=== PATIENT | female | born 1930 | race Caucasian/White ===

== ENCOUNTER 2021-06-15 22:34 | Inpatient (IN) | payer MEDICARE, OTHER ==
[~2021-06-15] VITALS: Ht 165.1 cm; Wt 56.7 kg
--- NOTE | 2021-06-15 23:30 | NUR ---
PATIENT DOES NOT RECALL HOME MEDICATION AT THIS TIME.
--- NOTE | 2021-06-15 23:40 | NUR ---
MEDICALLY CLEARED BY DR KISER.
[2021-06-15] MEDS ORDERED: NORVASC PO (23:50)
[2021-06-15] MEDS ORDERED: AMLODIPINE 5 MG TABLET ONE (23:54)
[2021-06-16] MEDS ORDERED: AMLODIPINE 5 MG TABLET PO ONE
--- NOTE | 2021-06-16 00:19 | NUR ---
Gave report to fermin roberts
[2021-06-16] MEDS ORDERED: LORAZEPAM 0.5 MG TABLET PO PRN (00:45)
[2021-06-16] MEDS ORDERED: MAG HYDROX/AL HYDROX/SIMETH 30 ML LIQUID UDC PO PRN (00:45)
[2021-06-16] MEDS ORDERED: MAGNESIUM HYDROXIDE 30 ML LIQUID UDC PO PRN (00:45)
[2021-06-16] MEDS ORDERED: BLOOD SUGAR DIAGNOSTIC 1 EACH STRIP VI ONE (00:45)
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
[2021-06-16 03:36] VITALS: BP 157/59
--- NOTE | 2021-06-16 06:00 | NUR ---
Slept 4.75 hours, total. Continues to sleep. Refused shower.
[2021-06-16 07:30] VITALS: BP 136/49
--- NOTE | 2021-06-16 09:04 | NUR ---
Firearms Report: Bowling Alley Mechanic completed and submitted a [employer] firearms report for 5150 DTS/DTO certifications. A copy of report has been placed in patient chart.
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
--- NOTE | 2021-06-16 10:09 | NUR ---
ELO Initial Discharge Plan: Pt was residing at her son's house Michael Esquivel ([phone]) located at [address] [place] [address] [place] [address]. Per patient will laney a SNF placement upon discharge. ELO will continue to work with patient, family, and MD to ensure a safe and proper discharge plan.
[2021-06-16] MEDS ORDERED: APIX2.5T PO (10:20)
[2021-06-16] MEDS ORDERED: APIXABAN 2.5 MG TABLET PO ONE (12:00)
[2021-06-16] MEDS ORDERED: BENA1TAB18 PO (13:46)
[2021-06-16] MEDS ORDERED: ATOR20TA PO (13:46)
[2021-06-16] MEDS ORDERED: AMLO2.5T2 PO (15:39)
[2021-06-16 16:00] VITALS: BP 128/46
[2021-06-16] MEDS: DIVALPROEX SPRINKLE 125 MG CAP.SPRINK PO SCH (17:28)
--- NOTE | 2021-06-16 20:00 | NUR ---
DPOA papers, naming patient's son Michael Esquivel, was received, and placed in chart.
[2021-06-16 20:01] VITALS: BP 125/57
[2021-06-16] MEDS: OLANZAPINE 2.5 MG TABLET PO SCH (20:35)
--- NOTE | 2021-06-16 21:00 | NUR ---
This press writer spoke with patients son, and DPOA, . He stated that patient was taking the OTC supplement, Prevagin, for her memory. He requested that MD order this medication for patient. She brought her own bottle, which will be sent to pharmacy. Med was entered into med reconciliation list. Will pass on to morning shift nurse aureliano request, so MD can be informed of his request.
[2021-06-16] MEDS: ACETAMINOPHEN 325 MG TABLET PO PRN (21:20)
[2021-06-16] MEDS ORDERED: prevagen SL (22:10)
--- NOTE | 2021-06-17 01:59 | NUR ---
Received to care, isolative, but pleasant, hard of hearing, but able to communicate well, with notes from staff. Compliant with medications, and staff direction. Ambulated via front wheel walker independently, but monitored closely, by staff. Bed alarm armed at bedtime, for her safety. No signs of aggression, but denies need foe psychiatric care. She went to sleep, around 2129. As of now, she continues to sleep. No distress noted. Will continue to monitor closely.
--- NOTE | 2021-06-17 06:00 | NUR ---
Slept well. Continues to sleep, intermittently. No distress, noted.
[2021-06-17 07:30] VITALS: BP 108/51
[2021-06-17] MEDS: DIVALPROEX SPRINKLE 125 MG CAP.SPRINK PO SCH ×2 (08:45→16:40)
[2021-06-17] MEDS: ATORVASTATIN 20 MG TABLET PO SCH (08:45)
[2021-06-17] MEDS: BENAZEPRIL HCL 20 MG TABLET PO SCH (08:46)
[2021-06-17] MEDS: APIXABAN 2.5 MG TABLET PO SCH ×2 (08:56→17:19)
[2021-06-17] MEDS: HYDROCHLOROTHIAZIDE 12.5 MG CAPSULE PO SCH (08:57)
[2021-06-17] MEDS: AMLODIPINE 2.5 MG TABLET PO SCH ×2 (08:58→17:00)
[2021-06-17 16:00] VITALS: BP 105/40
[2021-06-17] MEDS: PREVAGEN EXTRA STRENGTH PO SCH (17:16)
[2021-06-17] MEDS: ACETAMINOPHEN 325 MG TABLET PO PRN (17:40)
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
[2021-06-17 20:00] VITALS: BP 130/51
[2021-06-17] MEDS: OLANZAPINE 2.5 MG TABLET PO SCH (20:24)
--- NOTE | 2021-06-17 21:50 | NUR ---
GPS: Pt.is anxious,paranoid and fearful of her roommate. Demanding for her roommate to be moved to a different room. Argumentative with staff. Re-assured prn. Refuses Ativan 0.5mg PO for anxiety. Safety checks Q15 minutes done to ensure pt's safety. Roommate moved to a different room as agreed by both patients. Will continue to monitor.
[2021-06-18] MEDS: TEMAZEPAM 7.5 MG CAPSULE PO PRN ×2 (00:08→22:00)
[2021-06-18 08:00] VITALS: BP 126/46
[2021-06-18] MEDS: ATORVASTATIN 20 MG TABLET PO SCH (08:32)
[2021-06-18] MEDS: DIVALPROEX SPRINKLE 125 MG CAP.SPRINK PO SCH ×2 (08:32→16:23)
[2021-06-18] MEDS: PREVAGEN EXTRA STRENGTH PO SCH (08:34)
[2021-06-18] MEDS: HYDROCHLOROTHIAZIDE 12.5 MG CAPSULE PO SCH (08:34)
[2021-06-18] MEDS: APIXABAN 2.5 MG TABLET PO SCH ×2 (08:39→16:27)
[2021-06-18] MEDS: BENAZEPRIL HCL 20 MG TABLET PO SCH (08:40)
[2021-06-18] MEDS: AMLODIPINE 2.5 MG TABLET PO SCH ×2 (08:40→16:26)
[2021-06-18] MEDS ORDERED: PREVAGEN EXTRA STRENGTH PO SCH (09:00)
--- NOTE | 2021-06-18 09:19 | NUR ---
GPS: PT RECEIVED TODAY, ANXIOUS AND SUSPICIOUS WITH MEDICATIONS BEING GIVEN TO HER. PT STATED" YOU ARE GIVING ME MEDICATIONS TO KILL ME" RE-EDUCATED PT WITH THE MEDICATIONS SHE'S TAKING SPECIALLY THE PREVAGEN SHE'S ASKING THAT PT DENIES AND TELLS BRENNEN SON THAT SHE'S NOT GETTING. PT TALKED TO HER SON TODAY. PT NEEDY, COOPERATIVE WITH CARE.
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
[2021-06-18 16:00] VITALS: BP 132/42
[2021-06-18 20:26] VITALS: BP 128/50
[2021-06-18] MEDS: OLANZAPINE 2.5 MG TABLET PO SCH (20:26)
--- NOTE | 2021-06-18 20:42 | NUR ---
GPS: Discussed vaccination status with pt. and his son at this time. Pt.refusing PNA vaccine. Flu vaccine she just got few weeks ago. Communicated.
[2021-06-19 07:56] VITALS: BP 157/54
[2021-06-19] MEDS: HYDROCHLOROTHIAZIDE 12.5 MG CAPSULE PO SCH (09:08)
[2021-06-19] MEDS: PREVAGEN EXTRA STRENGTH PO SCH (09:08)
[2021-06-19] MEDS: DIVALPROEX SPRINKLE 125 MG CAP.SPRINK PO SCH ×2 (09:08→20:24)
[2021-06-19] MEDS: ATORVASTATIN 20 MG TABLET PO SCH (09:09)
[2021-06-19] MEDS: BENAZEPRIL HCL 20 MG TABLET PO SCH (09:09)
[2021-06-19] MEDS: AMLODIPINE 2.5 MG TABLET PO SCH ×2 (09:10→16:44)
[2021-06-19] MEDS: APIXABAN 2.5 MG TABLET PO SCH ×2 (09:11→16:45)
--- NOTE | 2021-06-19 15:17 | NUR ---
GPS: Nursing Notes: Destructive Behavior to Others: Patient is awake and responding to her name, impaired judgment, argumentative, needy, believes that nobody is helping her, needs prompting to participate in therapeutic groups, gets easily anxious when redirected, unkempt appearance, unable to formulate a viable plan for self care, continue to monitor for safety, continue with treatment plan.
[2021-06-19 16:36] VITALS: BP 111/51
[2021-06-19] MEDS: IBUPROFEN 200 MG TABLET PO PRN ×2 (16:44→20:41)
[2021-06-19 20:18] VITALS: BP 156/46
[2021-06-19] MEDS: OLANZAPINE 2.5 MG TABLET PO SCH (20:24)
--- NOTE | 2021-06-20 03:31 | NUR ---
Received to care, in room, needy and demanding. Wanted her bed linens be changed, and wanted staff to immediately stop what they were doing, several times, to tend to her needs. She initially refused her medications, but eventually took them. Her son called, trying to find out what articles of clothing to bring her. She hung up on him, telling him she will "walk around the halls naked" She refused to use the front wheel walker, stating she didnt need it, even though her gait was unsteady, at times.She went to sleep, around 2129. As of now, she is asleep. Bed alarm armed, for safety. Will continue to monitor.
--- NOTE | 2021-06-20 06:09 | NUR ---
Slept 8 hours. Continues to sleep. No distress noted.
[2021-06-20 07:30] VITALS: BP 140/50
[2021-06-20] MEDS: ATORVASTATIN 20 MG TABLET PO SCH (08:49)
[2021-06-20] MEDS: HYDROCHLOROTHIAZIDE 12.5 MG CAPSULE PO SCH (08:49)
[2021-06-20] MEDS: BENAZEPRIL HCL 20 MG TABLET PO SCH (08:49)
[2021-06-20] MEDS: AMLODIPINE 2.5 MG TABLET PO SCH ×2 (08:49→16:29)
[2021-06-20] MEDS: DIVALPROEX SPRINKLE 125 MG CAP.SPRINK PO SCH ×2 (08:49→20:16)
[2021-06-20] MEDS: APIXABAN 2.5 MG TABLET PO SCH ×2 (08:51→16:30)
[2021-06-20] MEDS: PREVAGEN EXTRA STRENGTH PO SCH (08:51)
--- NOTE | 2021-06-20 08:53 | NUR ---
ELO SNF Referral: ELO faxed patient's referral packet to [facility] ) ) attention to Laney. Addendum: 06/22/21 at 1053 by JUAN GARZA Patient is accepted for placement.
--- NOTE | 2021-06-20 13:54 | NUR ---
GPS: Nursing Notes: Destructive Behavior to Others: Patient is awake and responding to her, gets easily irritable when redirected, argumentative, loud and pressured speech, anxious affect, overly demanding and gets angry when her demands are not met immediately, believes that staff did not give her medications, stating "You are lying to me... I need my medication..", redirected and reoriented during shift, but gets easily irritable when redirected, continue to monitor for safety, continue with treatment plan.
[2021-06-20 15:05] VITALS: BP 150/48
[2021-06-20 20:00] VITALS: BP 120/45
[2021-06-20] MEDS: OLANZAPINE 2.5 MG TABLET PO SCH (20:17)
[2021-06-20] MEDS: TEMAZEPAM 7.5 MG CAPSULE PO PRN (22:06)
--- NOTE | 2021-06-21 01:52 | NUR ---
Received to care, isolative in room, needy and demanding at times, but easy to redirect. Initially refused her bedtime medications, but was finally encouraged to take them, after speaking to her son, on the phone. PRN Restoril was given at 2206, for insomnia, at her request. She fell asleep by 2300, and continues to sleep now. Bed alarm on, for patients safety. No distress noted. will continue to monitor closely.
[2021-06-21 07:30] VITALS: BP 117/97
[2021-06-21] MEDS: DIVALPROEX SPRINKLE 125 MG CAP.SPRINK PO SCH ×2 (08:26→20:06)
[2021-06-21] MEDS: APIXABAN 2.5 MG TABLET PO SCH ×2 (08:27→16:18)
[2021-06-21] MEDS: ATORVASTATIN 20 MG TABLET PO SCH (08:29)
[2021-06-21] MEDS: PREVAGEN EXTRA STRENGTH PO SCH (08:48)
[2021-06-21] MEDS: HYDROCHLOROTHIAZIDE 12.5 MG CAPSULE PO SCH (08:49)
[2021-06-21] MEDS: AMLODIPINE 2.5 MG TABLET PO SCH ×2 (08:49→16:19)
[2021-06-21] MEDS: BENAZEPRIL HCL 20 MG TABLET PO SCH (08:49)
--- NOTE | 2021-06-21 10:53 | NUR ---
ELO SNF Referral: ELO faxed patient's referral to [facility] ) ) attention to Radha for review. Patient is accetped for placement.
--- NOTE | 2021-06-21 15:37 | NUR ---
GPS: PT SPOKE WITH PATIENT RIGHTS, ERIKA. PT ASKING ERIKA TO GET HER OUT OF THIS PLACE BECAUSE PER PT SHE DOESN'T BELONG HER.
[2021-06-21 16:00] VITALS: BP 134/62
[2021-06-21] MEDS: CARBAMIDE PEROXIDE OTIC DROP 15 ML BOTTLE RIGHT EAR SCH ×2 (16:30→21:11)
--- NOTE | 2021-06-21 18:49 | NUR ---
Patient resting in room. No signs of acute distress. Patient compliant with medications and care. Patient able to make needs known. Patient needy and attention seeking. Patient fixated on discharge. Patient complained of ear pain. Tammy CAR DESIGNER informed. Orders carried out and patient expressed relief. Will endorse to incoming shift for continuity of care.
[2021-06-21 19:50] VITALS: BP_SYST 137; BP_SYST 160; BP_SYST 197; BP_DIAS 52; BP_DIAS 65
[2021-06-21] MEDS: OLANZAPINE 2.5 MG TABLET PO SCH (20:05)
[2021-06-21 20:46] VITALS: BP 140/43
[2021-06-21] MEDS: TEMAZEPAM 7.5 MG CAPSULE PO PRN (22:47)
--- NOTE | 2021-06-22 00:57 | NUR ---
Received to care, anxious, but pleasant, Remains focused on discharge, wanting to go back to her home. Her b/p was initially slightly elevated (160/52), but after taking her bedtime medications, talking to her son on the phone, and providing some emotional support, it went back down, a bit (140/43). She was given PRN Restoril, at 2247. for insomnia, at her request. She was asleep, by 2330. She woke up a little while ago, went to the bathroom, ate a snack, and went back to sleep, and continues to sleep. No distress noted, Will continue to monitor closely.
--- NOTE | 2021-06-22 06:00 | NUR ---
Slept 5.25 hours. Continues to sleep. No distress noted.
[2021-06-22 07:30] VITALS: BP 156/53
[2021-06-22] MEDS: BENAZEPRIL HCL 20 MG TABLET PO SCH (08:44)
[2021-06-22] MEDS: ATORVASTATIN 20 MG TABLET PO SCH (08:44)
[2021-06-22] MEDS: HYDROCHLOROTHIAZIDE 12.5 MG CAPSULE PO SCH (08:45)
[2021-06-22] MEDS: AMLODIPINE 2.5 MG TABLET PO SCH ×2 (08:45→16:38)
[2021-06-22] MEDS: CARBAMIDE PEROXIDE OTIC DROP 15 ML BOTTLE RIGHT EAR SCH ×2 (08:46→20:22)
[2021-06-22] MEDS: PREVAGEN EXTRA STRENGTH PO SCH (08:46)
[2021-06-22] MEDS: APIXABAN 2.5 MG TABLET PO SCH ×2 (08:54→16:39)
[2021-06-22] MEDS: DIVALPROEX SPRINKLE 125 MG CAP.SPRINK PO SCH ×2 (09:56→20:17)
--- NOTE | 2021-06-22 10:52 | NUR ---
SW Family Contact: SW spoke with patient's son Michael Esquivel ([phone]) and son Garth ([phone]) and discussed discharge planning. Both will be looking into [facility] and [facility] and let this SW know which facility they choose.
--- NOTE | 2021-06-22 14:16 | NUR ---
Gps/Hvac Mechanical Engineer- Anxious, needy this am, , demanding to see her Doctor to removed wasx in her ear, informed needed to instill debrox ear gtt.to soften ear wax, refused. Patient quiet this pm, encouraged to attend her group tx.
[2021-06-22 16:00] VITALS: BP 137/49
[2021-06-22 20:04] VITALS: BP 142/51
[2021-06-22] MEDS: OLANZAPINE 2.5 MG TABLET PO SCH (20:17)
[2021-06-22] MEDS: TEMAZEPAM 7.5 MG CAPSULE PO PRN (21:29)
--- NOTE | 2021-06-23 06:10 | NUR ---
GPS: Pt. remains asleep at this time. Safe environment provided. Fall precautions observed. Bed alarm on for safety. Will continue to monitor.
[2021-06-23 07:30] VITALS: BP 109/44
[2021-06-23 08:31] LABS: HEMATOCRIT 34.6 % (31.2-41.9); MEAN CORPUSCULAR HEMOGLOBIN 31.4 uug (24.7-32.8); MEAN CORPUSCULAR VOLUME 92.3 fL (75.5-95.3); PLATELET COUNT (AUTO) 253 K/uL (179-408)
[2021-06-23 08:45] LABS: BILIRUBIN,TOTAL 0.3 mg/dL (0.2-1.0); CREATININE 0.7 mg/dL (0.6-1.3); TOTAL PROTEIN, SERUM 7.6 g/dL (6.4-8.2)
[2021-06-23] MEDS: DIVALPROEX SPRINKLE 125 MG CAP.SPRINK PO SCH ×2 (08:53→20:18)
[2021-06-23] MEDS: PREVAGEN EXTRA STRENGTH PO SCH (08:54)
[2021-06-23] MEDS: ATORVASTATIN 20 MG TABLET PO SCH (08:54)
[2021-06-23] MEDS: HYDROCHLOROTHIAZIDE 12.5 MG CAPSULE PO SCH (08:54)
[2021-06-23] MEDS: AMLODIPINE 2.5 MG TABLET PO SCH ×2 (08:55→16:23)
[2021-06-23] MEDS: CARBAMIDE PEROXIDE OTIC DROP 15 ML BOTTLE RIGHT EAR SCH ×2 (08:56→20:18)
[2021-06-23] MEDS: BENAZEPRIL HCL 20 MG TABLET PO SCH (08:57)
[2021-06-23] MEDS: APIXABAN 2.5 MG TABLET PO SCH ×2 (08:58→16:25)
[2021-06-23] MEDS: IBUPROFEN 200 MG TABLET PO PRN (09:04)
--- NOTE | 2021-06-23 15:17 | NUR ---
ELO Family Contact: SW spoke with patient's son Michael Esquivel ([phone]) and son Garth ([phone]) and discussed updated discharge planning.
--- NOTE | 2021-06-23 16:18 | NUR ---
Gps/Evi- Ozzy (son from [place] ) called, patient was able to talked to him for abount 20 minutes. Complained of feeling cold, encouraged to wear hier sweater. . Stayed in bed thid pm, likes to read book, somewhat needy, needed to encouraged initiating simple tasks to assist self with her simple needs.
[2021-06-23 16:37] VITALS: BP_SYST 102; BP_SYST 106; BP_DIAS 48; BP_DIAS 60
--- NOTE | 2021-06-23 17:51 | NUR ---
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 Patient complaining to the son she never gets what she wants here, informed son , () Dietry tried to accomodate her request at times but dietary dont have what she's ordering. Noted poor intake she does not like most of her food served.
--- NOTE | 2021-06-23 18:00 | NUR ---
Gps/Motor Analyst- Son called apparently patient trying to eat dinner, ,told son to call back in 1 hour after pt. done with dinner.
[2021-06-23 20:00] VITALS: BP_SYST 110; BP_SYST 131; BP_DIAS 52; BP_DIAS 94
[2021-06-23] MEDS: OLANZAPINE 2.5 MG TABLET PO SCH (20:17)
[2021-06-23] MEDS: TEMAZEPAM 7.5 MG CAPSULE PO PRN (21:23)
[2021-06-24] MEDS: ACETAMINOPHEN 325 MG TABLET PO PRN (06:36)
--- NOTE | 2021-06-24 06:46 | NUR ---
GPS: Pt.slept 7.15 last night. Remains needy,anxious but re-directable. Safety emphasized. Fluids yusef.well. Will continue to re-assure prn.
[2021-06-24 08:24] VITALS: BP 104/59
[2021-06-24] MEDS: DIVALPROEX SPRINKLE 125 MG CAP.SPRINK PO SCH ×2 (09:07→20:02)
[2021-06-24] MEDS: ATORVASTATIN 20 MG TABLET PO SCH (09:07)
[2021-06-24] MEDS: BENAZEPRIL HCL 20 MG TABLET PO SCH (09:07)
[2021-06-24] MEDS: HYDROCHLOROTHIAZIDE 12.5 MG CAPSULE PO SCH (09:07)
[2021-06-24] MEDS: AMLODIPINE 2.5 MG TABLET PO SCH ×2 (09:08→16:38)
[2021-06-24] MEDS: PREVAGEN EXTRA STRENGTH PO SCH (09:08)
[2021-06-24] MEDS: CARBAMIDE PEROXIDE OTIC DROP 15 ML BOTTLE RIGHT EAR SCH ×2 (09:08→20:03)
[2021-06-24] MEDS: APIXABAN 2.5 MG TABLET PO SCH ×2 (09:09→16:41)
[2021-06-24 16:45] VITALS: BP 126/54
[2021-06-24 20:00] VITALS: BP 142/52
[2021-06-24] MEDS: OLANZAPINE 2.5 MG TABLET PO SCH (20:03)
[2021-06-24] MEDS: IBUPROFEN 200 MG TABLET PO PRN (22:53)
[2021-06-24] MEDS: TEMAZEPAM 7.5 MG CAPSULE PO PRN (22:54)
--- NOTE | 2021-06-25 02:54 | NUR ---
Received patient at the start of the shift standing in the doorway, asking for multiple things.Assistance was provided at that time. This sheet writer also listened to the patient for a good while as she expressed wanting to go "Home " vs a SNF and that she is " Not crazy". D/T the patient being very hard of hearing, this sheet writer wrote things on paper to ensure there were no miscommunication. The patient was pleasant and cooperative. Less anxious then was noted a few days ago. Safety stratiges are in place. Continuing to reassure the patient when needed and to follow with the plan of care.
[2021-06-25 07:30] VITALS: BP 135/50
[2021-06-25] MEDS: DIVALPROEX SPRINKLE 125 MG CAP.SPRINK PO SCH ×2 (09:50→21:51)
[2021-06-25] MEDS: BENAZEPRIL HCL 20 MG TABLET PO SCH (09:50)
[2021-06-25] MEDS: CARBAMIDE PEROXIDE OTIC DROP 15 ML BOTTLE RIGHT EAR SCH ×2 (09:51→21:51)
[2021-06-25] MEDS: HYDROCHLOROTHIAZIDE 12.5 MG CAPSULE PO SCH (09:51)
[2021-06-25] MEDS: ATORVASTATIN 20 MG TABLET PO SCH (09:51)
[2021-06-25] MEDS: AMLODIPINE 2.5 MG TABLET PO SCH ×2 (09:51→16:18)
[2021-06-25] MEDS: APIXABAN 2.5 MG TABLET PO SCH ×2 (09:52→16:23)
[2021-06-25] MEDS: PREVAGEN EXTRA STRENGTH PO SCH (09:52)
[2021-06-25 15:57] VITALS: BP 129/51
[2021-06-25 20:12] VITALS: BP 120/69
[2021-06-25] MEDS: OLANZAPINE 2.5 MG TABLET PO SCH (21:51)
[2021-06-25] MEDS: TEMAZEPAM 7.5 MG CAPSULE PO PRN (21:52)
--- NOTE | 2021-06-26 06:26 | NUR ---
Irritable, angry, needy, entitled, rude, demanding, manipulative, oppositional, argumentative, and easily agitated. Denies SI. Contracts for safety.
[2021-06-26 08:18] VITALS: BP 137/49
[2021-06-26] MEDS: HYDROCHLOROTHIAZIDE 12.5 MG CAPSULE PO SCH (09:25)
[2021-06-26] MEDS: CARBAMIDE PEROXIDE OTIC DROP 15 ML BOTTLE RIGHT EAR SCH ×2 (09:25→20:11)
[2021-06-26] MEDS: DIVALPROEX SPRINKLE 125 MG CAP.SPRINK PO SCH ×2 (09:25→20:11)
[2021-06-26] MEDS: ATORVASTATIN 20 MG TABLET PO SCH (09:25)
[2021-06-26] MEDS: PREVAGEN EXTRA STRENGTH PO SCH (09:26)
[2021-06-26] MEDS: BENAZEPRIL HCL 20 MG TABLET PO SCH (09:26)
[2021-06-26] MEDS: AMLODIPINE 2.5 MG TABLET PO SCH ×2 (09:26→16:56)
[2021-06-26] MEDS: APIXABAN 2.5 MG TABLET PO SCH ×2 (09:27→16:58)
[2021-06-26 16:21] VITALS: BP 104/44
[2021-06-26 20:00] VITALS: BP 117/44
[2021-06-26] MEDS: OLANZAPINE 2.5 MG TABLET PO SCH (20:11)
[2021-06-26] MEDS: TEMAZEPAM 7.5 MG CAPSULE PO PRN (21:19)
--- NOTE | 2021-06-27 07:15 | NUR ---
GPS: Pt.slept 7 hrs.last night. Still has episodes of being needy,argumentative and intrusive. Safe environment provided. Re-assured prn. Will continue to monitor.
[2021-06-27 07:30] VITALS: BP 153/46
[2021-06-27] MEDS: ATORVASTATIN 20 MG TABLET PO SCH (08:31)
[2021-06-27] MEDS: HYDROCHLOROTHIAZIDE 12.5 MG CAPSULE PO SCH (08:31)
[2021-06-27] MEDS: DIVALPROEX SPRINKLE 125 MG CAP.SPRINK PO SCH ×2 (08:31→20:15)
[2021-06-27] MEDS: APIXABAN 2.5 MG TABLET PO SCH ×2 (08:32→17:25)
[2021-06-27] MEDS: AMLODIPINE 2.5 MG TABLET PO SCH ×2 (08:33→17:26)
[2021-06-27] MEDS: PREVAGEN EXTRA STRENGTH PO SCH (08:33)
[2021-06-27] MEDS: BENAZEPRIL HCL 20 MG TABLET PO SCH (08:33)
[2021-06-27] MEDS: CARBAMIDE PEROXIDE OTIC DROP 15 ML BOTTLE RIGHT EAR SCH ×2 (08:34→20:22)
--- NOTE | 2021-06-27 09:37 | NUR ---
ELO Family Contact: ELO spoke with patient's son Michael Esquivel ([phone]) about possible discharge this week.
--- NOTE | 2021-06-27 11:15 | NUR ---
GPS: Nursing Notes: Destructive Behavior to Other: Patient is awake and responding to her name, argumentative with staff at times, cooperative with nursing care, compliant with her medications, participating in therapeutic groups, poor impulse control, gets easily anxious when redirected, but cooperative with her care, unable to formulate a viable plan for self care, continue with treatment plan.
[2021-06-27 16:16] VITALS: BP 137/50
[2021-06-27] MEDS: OLANZAPINE 2.5 MG TABLET PO SCH (20:15)
[2021-06-27] MEDS: TEMAZEPAM 7.5 MG CAPSULE PO PRN (21:34)
[2021-06-27 23:05] VITALS: BP 125/59
[2021-06-28 07:30] VITALS: BP 131/38
--- NOTE | 2021-06-28 07:53 | NUR ---
SW Discharge Note: Patient will be discharged to [facility] [address] [place] [address] ([phone]). Patient will be provided Ambulance transportation at 3:30PM. Spoke with Laney, Admin Coordinator at the facility who states they are ready to accept the patient today. Patient is aware and agreeable with discharge plans. Patient is alert and oriented x3, is unable to plan for self-care at this time, however, is willing to accept care at [facility]. Patient denies any suicidal or homicidal ideation. Patient will follow-up at the facility with Dr. López Psychiatrist and Dr. Hurtado Oil Dispatcher. Patient presents with calm mood and congruent affect. Patient's son Michael Esquivel ([phone]) is aware and agreeable with discharge plan.
[2021-06-28] MEDS: DIVALPROEX SPRINKLE 125 MG CAP.SPRINK PO SCH (08:25)
[2021-06-28] MEDS: PREVAGEN EXTRA STRENGTH PO SCH (08:26)
[2021-06-28] MEDS: ATORVASTATIN 20 MG TABLET PO SCH (08:26)
[2021-06-28] MEDS: BENAZEPRIL HCL 20 MG TABLET PO SCH (08:26)
[2021-06-28 08:27] VITALS: BP 131/58
[2021-06-28] MEDS: AMLODIPINE 2.5 MG TABLET PO SCH (08:27)
[2021-06-28] MEDS: HYDROCHLOROTHIAZIDE 12.5 MG CAPSULE PO SCH (08:27)
[2021-06-28] MEDS: APIXABAN 2.5 MG TABLET PO SCH (08:28)
[2021-06-28] MEDS: CARBAMIDE PEROXIDE OTIC DROP 15 ML BOTTLE RIGHT EAR SCH (08:31)
--- NOTE | 2021-06-28 12:20 | NUR ---
GPS: PT RECEIVED TODAY ON BED. ALERT/ORIENTED X3. PT EXCITED TO BE DISCHARGED TO [facility]. COOPERATIVE WITH CARE AND COMPLIANT WITH MEDICATIONS. PT WILL BE TRANSPORTED BY AMBULANCE, AT 1530. DENIES ANY SUICIDAL OR HOMICIDAL IDEATION. IN CALM MOOD AND CONGRUENT AFFECT. PT WILL FOLLOW UP WITH DR HOOKER (PSYCHIATRIST) AND DR SALINAS (GLOVE PAIRER).
--- NOTE | 2021-06-28 16:14 | NUR ---
\GPS: PT WAS DISCHARGE FROM THE HOSPITAL VIA AMBULANCE. [facility] EXPECTING THE PT. DENIES ANY PAIN OR DISCOMFORT. PT IN CONGRUENT AFFECT AND NO ANXIOUS OR AGITATION NOTED.
== END 2021-06-28 16:30 | DRG 885 ==
LOC: ER 22:37 → GPS 23:20
PROVIDERS: ADMIT Psychiatry & Neurology Psychosomatic Medicine; ATTEND Nurse Practitioner Acute Care
DX: F31.9 Bipolar disorder, unspecified (principal); R45.851 Suicidal ideations; I25.10 Atherosclerotic heart disease of native coronary artery without angina pectoris; Z95.5 Presence of coronary angioplasty implant and graft; Z79.01 Long term (current) use of anticoagulants; E78.5 Hyperlipidemia, unspecified; F03.90 Unspecified dementia, unspecified severity, without behavioral disturbance, psychotic disturbance, mood disturbance, and anxiety; I10 Essential (primary) hypertension; K21.9 Gastro-esophageal reflux disease without esophagitis; Z95.0 Presence of cardiac pacemaker; F25.9 Schizoaffective disorder, unspecified; Z79.899 Other long term (current) drug therapy
CPT/HCPCS: 36415; 80164; 85025; 97161; A4663